=== PATIENT | female | born 1960 | race Hispanic/Latino ===

== ENCOUNTER 2018-12-13 11:22 | Emergency (ER) | payer MEDICARE ==
[2018-12-13 11:40] VITALS: BP 99/62
--- NOTE | 2018-12-13 11:43 | Event Note ---
ED Screening Note Date of service: 12/13/18 Time: 11:38 ED Screening Note: This is a 58 y.o. F. that presents to the ER with generalized body aches, cough, and fatigue. Patient states she fell landing on right side and reports increasing pain and fatigue. Reports recent weight loss. Current smoker. Patient states she was released from retirement 3 days ago. Reports a productive cough. This initial assessment/diagnostic orders/clinical plan/treatment(s) is/are subject to change based on patients health status, clinical progression and re- assessment by fellow clinical providers in the ED. Further treatment and workup at subsequent clinical providers discretion. Patient/guardian urged not to elope from the ED as their condition may be serious if not clinically assessed and managed. Initial orders include: CXR and labs
--- NOTE | 2018-12-13 12:53 | XRay Report ---
CHEST 2 VIEWS INDICATION: Chest pain and cough, patient reports a fall. COMPARISON: None FINDINGS: Support devices: None. Heart: Within normal limits. Lungs/pleura: The lungs are hyperinflated suggesting moderate underlying emphysematous changes. Bron chopulmonary markings in the right middle lobe are prominent anteriorly. This appears to represent sc arring or segmental atelectasis. Infiltrate is thought less likely. The lungs are clear otherwise. No pleural effusion or pneumothorax. Additional findings: The bony structures are demineralized but grossly intact. Multiple surgical clip s in the right axilla are noted. Probable right mastectomy changes. IMPRESSION: Emphysema. Probable chronic interstitial changes or scarring in the right middle lobe. No acute cardi opulmonary process is appreciated. Signer Name: Johnson Alicia Jr, MD Signed: 12/13/2018 12:49 PM Workstation Name: [id number]
[2018-12-13 12:58] LABS: Basophils % (Auto) 0.5 % (0.0-1.8); Eosinophils % (Auto) 0.4 % (0.0-4.3); Hematocrit 30.6 % (30.3-42.9); Hemoglobin 10.4 gm/dl (10.1-14.3); Lymphocytes # (Auto) 1.6 K/mm3 (1.2-5.4); Lymphocytes % (Auto) 18.9 % (13.4-35.0); Mean Corpuscular HGB Conc 34 % (30-34); Mean Corpuscular Volume 84 fl (79-97); Monocytes # (Auto) 1.1 K/mm3 (0.0-0.8); Platelet Count 340 K/mm3 (140-440); Red Blood Count 3.63 M/mm3 (3.65-5.03)
[2018-12-13 13:12] LABS: Alanine Aminotransferase 27 units/L (7-56); Albumin 3.3 g/dL (3.9-5); BUN/Creatinine Ratio 23; Blood Urea Nitrogen 9 mg/dL (7-17); Calcium 8.5 mg/dL (8.4-10.2); Hemolysis Index 0
[2018-12-13 13:17] LABS: Red Cell Distribution Width 20.1 % (13.2-15.2)
[2018-12-13] MEDS ORDERED: K-DUR PO ONE (13:29)
[2018-12-13] MEDS ORDERED: NORCO 5/325 PO ONE (13:49)
--- NOTE | 2018-12-13 13:50 | Emergency Department Report ---
ED General Adult HPI - General Chief complaint: Weakness Stated complaint: BODY PAIN/FATIGUE Time Seen by Provider: 12/13/18 11:38 Source: patient, EMS Mode of arrival: Ambulatory Limitations: No Limitations - History of Present Illness Initial comments: 58-year-old female patient with history of breast cancer presents today with complaints of right hip and right rib and right shoulder pain 3 days after falling and cough x 3 days. She states she was released from long term after a month's stay a few days ago. She denies head trauma or loss of consciousness. He also complains of weight loss of 20 pounds over 3 months in chronic fatigue for months. She denies any abdominal pain, dysuria, headache, vision changes, chest pain, fever/chills, or shortness of breath. He states the cough is productive of clear sputum. -: Sudden Severity scale (0 -10): 7 Treatments Prior to Arrival: none - Related Data Previous Rx's Medication Instructions Recorded Last Taken Type Benzonatate [Tessalon Perles] 200 mg PO Q8HR PRN #40 capsule 12/13/18 Unknown Rx Prednisone [predniSONE 10 mg 10 mg PO .TAPER #1 tab.ds.pk 12/13/18 Unknown Rx (6-Day Pack, 21 Tabs)] Allergies Allergy/AdvReac Type Severity Reaction Status Date / Time levofloxacin [From Levaquin] Allergy Rash Verified 12/13/18 11:28 ED Review of Systems ROS: Stated complaint: BODY PAIN/FATIGUE Other details as noted in HPI Constitutional: malaise. denies: chills, fever Eyes: denies: eye pain, vision change ENT: denies: throat pain Respiratory: cough, wheezing. denies: shortness of breath Cardiovascular: denies: chest pain, palpitations, dyspnea on exertion Endocrine: denies: excessive sweating, flushing Gastrointestinal: denies: abdominal pain Musculoskeletal: as per HPI. denies: back pain Skin: denies: as per HPI, rash, lesions Neurological: denies: headache, weakness, numbness, paresthesias, abnormal gait ED Past Medical Hx - Past Medical History Previous Medical History?: Yes Hx COPD: Yes Additional medical history: Hep C, breast CA, anemia - Surgical History Past Surgical History?: Yes Additional Surgical History: Radical mastectomy - Social History Smoking Status: Current Some Day Smoker Substance Use Type: None - Medications Home Medications: Home Medications Medication Instructions Recorded Confirmed Last Taken Type Benzonatate [Tessalon Perles] 200 mg PO Q8HR PRN #40 capsule 12/13/18 Unknown Rx Prednisone [predniSONE 10 mg 10 mg PO .TAPER #1 tab.ds.pk 12/13/18 Unknown Rx (6-Day Pack, 21 Tabs)] ED Physical Exam - General Limitations: No Limitations General appearance: alert, in no apparent distress - Head Head exam: Present: atraumatic, normocephalic - Eye Eye exam: Present: normal appearance - ENT ENT exam: Present: mucous membranes moist - Neck Neck exam: Present: normal inspection - Respiratory Respiratory exam: Present: normal lung sounds bilaterally, rhonchi, chest wall tenderness (upper right lateral ribs ). Absent: respiratory distress, wheezes, rales - Cardiovascular Cardiovascular Exam: Present: regular rate, normal rhythm, normal heart sounds - GI/Abdominal GI/Abdominal exam: Present: soft, normal bowel sounds - Extremities Exam Extremities exam: Present: full ROM, tenderness (right lateral hip ). Absent: joint swelling - Back Exam Back exam: Present: normal inspection, full ROM. Absent: tenderness - Neurological Exam Neurological exam: Present: alert, oriented X3 - Psychiatric Psychiatric exam: Present: normal affect, normal mood - Skin Skin exam: Present: warm, dry, intact, normal color. Absent: rash ED Course Vital Signs 12/13/18 11:37 Temperature 98.9 F Pulse Rate 104 H Respiratory 20 Rate Blood Pressure 99/62 O2 Sat by Pulse 95 Oximetry ED Medical Decision Making - Lab Data Result diagrams: 12/13/18 12:37 12/13/18 12:37 Lab Results 12/13/18 12/13/18 12/13/18 Range/Units 12:37 12:37 13:54 WBC 8.3 (4.5-11.0) K/mm3 RBC 3.63 L (3.65-5.03) M/mm3 Hgb 10.4 (10.1-14.3) gm/dl Hct 30.6 (30.3-42.9) % MCV 84 (79-97) fl MCH 29 (28-32) pg MCHC 34 (30-34) % RDW 20.1 H (13.2-15.2) % Plt Count 340 (140-440) K/mm3 Lymph % (Auto) 18.9 (13.4-35.0) % [place] % (Auto) 13.0 H (0.0-7.3) % Eos % (Auto) 0.4 (0.0-4.3) % Baso % (Auto) 0.5 (0.0-1.8) % Lymph # 1.6 (1.2-5.4) K/mm3 [place] # 1.1 H (0.0-0.8) K/mm3 Eos # 0.0 (0.0-0.4) K/mm3 Baso # 0.0 (0.0-0.1) K/mm3 Seg Neutrophils % 67.2 (40.0-70.0) % Seg Neutrophils # 5.6 (1.8-7.7) K/mm3 Sodium 145 (137-145) mmol/L Potassium 3.4 L (3.6-5.0) mmol/L Chloride 104.2 (98-107) mmol/L Carbon Dioxide 26 (22-30) mmol/L Anion Gap 18 mmol/L BUN 9 (7-17) mg/dL Creatinine 0.4 L (0.7-1.2) mg/dL Estimated GFR > 60 ml/min BUN/Creatinine Ratio 23 % Glucose 104 H (65-100) mg/dL Calcium 8.5 (8.4-10.2) mg/dL Total Bilirubin 0.40 (0.1-1.2) mg/dL AST 26 (5-40) units/L ALT 27 (7-56) units/L Alkaline Phosphatase 78 (35-129) units/L Total Protein 6.7 (6.3-8.2) g/dL Albumin 3.3 L (3.9-5) g/dL Albumin/Globulin Ratio 1.0 % TSH 0.602 (0.270-4.200) mlU/mL - Radiology Data Radiology results: report reviewed XRs of right ribs, right shoulder, and right hip are negative for acute findings. CHEST 2 VIEWS INDICATION: Chest pain and cough, patient reports a fall. COMPARISON: None FINDINGS: Support devices: None. Heart: Within normal limits. Lungs/pleura: The lungs are hyperinflated suggesting moderate underlying emphysematous changes. Bronchopulmonary markings in the right middle lobe are prominent anteriorly. This appears to represent scarring or segmental atelectasis. Infiltrate is thought less likely. The lungs are clear otherwise. No pleural effusion or pneumothorax. Additional findings: The bony structures are demineralized but grossly intact. Multiple surgical clips in the right axilla are noted. Probable right mastectomy changes. IMPRESSION: Emphysema. Probable chronic interstitial changes or scarring in the right middle lobe. No acute cardiopulmonary process is appreciated. - Medical Decision Making Pt here for pain due to a fall and cough x 3 days. Pt also complained of 20 lb weight loss over the passed 3 months. History of breast cancer. CBC and BMP R WNL chest x-ray shows probable chronic right lung scarring. No fever noted. Patient denies shortness of breath or chest pain. Discussed pt with Dr. Dozier- agrees pt okay to f/u outpt concerning xr findings. Informed patient of abnormal x-ray findings in the need for follow-up primary care and potentially pulmonology. X-rays negative for fractures. Will treat patient for viral bronchitis. Discussed need for return to ED if new or worsening symptom spatient states understanding. Critical care attestation.: If time is entered above; I have spent that time in minutes in the direct care of this critically ill patient, excluding procedure time. ED Disposition Clinical Impression: Contusion of bone, Abnormal chest xray Right shoulder strain Qualifiers: Encounter type: initial encounter Qualified Code(s): S46.911A - Strain of unspecified muscle, fascia and tendon at shoulder and upper arm level, right arm, initial encounter Disposition: DC-01 TO HOME OR SELFCARE Is pt being admited?: No Condition: Stable Instructions: Acute Bronchitis (ED), Contusion in Adults (ED), Shoulder Sprain (ED) Prescriptions: Prednisone [predniSONE 10 mg (6-Day Pack, 21 Tabs)] 10 mg PO .TAPER #1 tab.ds.pk Benzonatate [Tessalon Perles] 200 mg PO Q8HR PRN #40 capsule PRN Reason: Cough Referrals: [facility] [Provider Group] - 3-5 Days RAFAEL CAICEDO MD [Staff Physician] - 3-5 Days
--- NOTE | 2018-12-13 14:27 | XRay Report ---
RIGHT SHOULDER, 3 VIEWS INDICATION: pain after fall. COMPARISON: None. IMPRESSION: No acute osseous or soft tissue abnormality. No significant DJD. RIGHT RIBS, 4 VIEWS INDICATION: pain after fall. COMPARISON: None. IMPRESSION: No displaced right rib fracture is identified on x-ray. The right lung is well aerated. RIGHT HIP, 2 VIEWS INDICATION: pain after fall. COMPARISON: None. IMPRESSION: No acute osseous or soft tissue abnormality. No significant DJD. Signer Name: Johnson Alicia Jr, MD Signed: 12/13/2018 2:23 PM Workstation Name: [id number]
== END 2018-12-13 17:33 | disposition home or self-care (01) ==
LOC: ED 11:22
DX: S46.911A Strain of unspecified muscle, fascia and tendon at shoulder and upper arm level, right arm, initial encounter (principal); S70.01XA Contusion of right hip, initial encounter; J44.9 Chronic obstructive pulmonary disease, unspecified; Z86.2 Personal history of diseases of the blood and blood-forming organs and certain disorders involving the immune mechanism; F17.200 Nicotine dependence, unspecified, uncomplicated; Z79.899 Other long term (current) drug therapy; Z88.1 Allergy status to other antibiotic agents; X58.XXXA Exposure to other specified factors, initial encounter; Y93.89 Activity, other specified; Y92.89 Other specified places as the place of occurrence of the external cause; Y99.8 Other external cause status
CPT/HCPCS: 36415; 71046; 80053; 84443; 85025

== ENCOUNTER 2019-01-09 15:38 | Emergency (ER) | payer MEDICARE ==
[2019-01-09] MEDS ORDERED: SODIUM CHLORIDE 0.9% 500 ML 500 ML IV ONE (16:48)
[2019-01-09 18:21] LABS: BUN/Creatinine Ratio 15; Blood Urea Nitrogen 12 mg/dL (7-17); Calcium 8.8 mg/dL (8.4-10.2); Hemolysis Index 30
[2019-01-09] MEDS ORDERED: SODIUM CHLORIDE 0.9% 1000 ML 1,000 ML IV ONE (18:48)
--- NOTE | 2019-01-09 18:58 | Emergency Department Report ---
ED General Adult HPI - General Chief complaint: Overdose Stated complaint: AMS Time Seen by Provider: 01/09/19 16:43 Source: patient, EMS Mode of arrival: Stretcher Limitations: No Limitations - History of Present Illness Initial comments: Patient is a 58-year-old female who has a past medical history of opioid addiction secondary to long-standing back pain. The patient states she been in treatment for opiate abuse in the past but relapsed 2 days ago and the patient used heroin yesterday. Patient states that she went to get some dinner from the hotel that she was at and on her way from dinner she lost consciousness. Paramedics were called. Patient had pinpoint pupils at the time and she was given Narcan the patient is arrived awake and alert with no acute issues. Patient denies any nausea vomiting fevers chills headache or injury. - Related Data Previous Rx's Medication Instructions Recorded Last Taken Type Benzonatate [Tessalon Perles] 200 mg PO Q8HR PRN #40 capsule 12/13/18 Unknown Rx Prednisone [predniSONE 10 mg 10 mg PO .TAPER #1 tab.ds.pk 12/13/18 Unknown Rx (6-Day Pack, 21 Tabs)] Allergies Allergy/AdvReac Type Severity Reaction Status Date / Time levofloxacin [From Levaquin] Allergy Rash Verified 12/13/18 11:28 ED Review of Systems ROS: Stated complaint: AMS Other details as noted in HPI Comment: All other systems reviewed and negative ED Past Medical Hx - Past Medical History Previous Medical History?: Yes Hx COPD: Yes Additional medical history: Hep C, breast CA, anemia, osteoarthritis - Surgical History Past Surgical History?: Yes Additional Surgical History: Radical Right Mastectomy - Social History Smoking Status: Current Every Day Smoker Substance Use Type: Heroin - Medications Home Medications: Home Medications Medication Instructions Recorded Confirmed Last Taken Type Benzonatate [Tessalon Perles] 200 mg PO Q8HR PRN #40 capsule 12/13/18 Unknown Rx Prednisone [predniSONE 10 mg 10 mg PO .TAPER #1 tab.ds.pk 12/13/18 Unknown Rx (6-Day Pack, 21 Tabs)] ED Physical Exam - General Limitations: No Limitations General appearance: alert, in no apparent distress - Head Head exam: Present: atraumatic, normocephalic - Eye Eye exam: Present: normal appearance - ENT ENT exam: Present: mucous membranes moist - Neck Neck exam: Present: normal inspection - Respiratory Respiratory exam: Present: normal lung sounds bilaterally. Absent: respiratory distress, wheezes, rales, rhonchi - Cardiovascular Cardiovascular Exam: Present: regular rate, normal rhythm. Absent: systolic murmur, diastolic murmur, rubs, gallop - GI/Abdominal GI/Abdominal exam: Present: soft, normal bowel sounds - Extremities Exam Extremities exam: Present: normal inspection - Back Exam Back exam: Present: normal inspection - Neurological Exam Neurological exam: Present: alert, oriented X3 - Psychiatric Psychiatric exam: Present: normal affect, normal mood - Skin Skin exam: Present: warm, dry, intact, normal color. Absent: rash ED Course Vital Signs 01/09/19 01/09/19 01/09/19 16:40 16:48 18:19 Temperature 98.4 F Pulse Rate 125 H 111 H 103 H Respiratory 20 18 18 Rate Blood Pressure 103/56 Blood Pressure 96/46 80/43 [Left] O2 Sat by Pulse 93 97 95 Oximetry ED Medical Decision Making - Lab Data Result diagrams: 01/09/19 17:50 - Medical Decision Making Patient was placed on ekg monitor was monitored for 3 hours. Patient was noted to be sleeping in the room and her blood pressure dropped to 80 systolic. Patient with just voice awoke up immediately and did not appear to be overdosed again on narcotics. Patient states that she has always had a low blood pressure entire life. Patient states normal blood pressure for his approximately 90 systolic. Patient states that when she is sleep her blood pressure has dropped in the past. Recheck the patient's blood pressure after waking her up and it was 90/50. Critical care attestation.: If time is entered above; I have spent that time in minutes in the direct care of this critically ill patient, excluding procedure time. ED Disposition Clinical Impression: Heroin overdose Disposition: DC-01 TO HOME OR SELFCARE Is pt being admited?: No Does the pt Need Aspirin: No Condition: Stable Instructions: Narcotic Abuse (ED) Time of Disposition: 18:59
[2019-01-09 19:35] VITALS: BP 90/59
== END 2019-01-09 19:33 | disposition home or self-care (01) ==
LOC: ED 15:38
DX: T40.1X1A Poisoning by heroin, accidental (unintentional), initial encounter (principal); J44.9 Chronic obstructive pulmonary disease, unspecified; F17.200 Nicotine dependence, unspecified, uncomplicated; Z86.19 Personal history of other infectious and parasitic diseases; Z86.2 Personal history of diseases of the blood and blood-forming organs and certain disorders involving the immune mechanism; Z90.11 Acquired absence of right breast and nipple; Z88.1 Allergy status to other antibiotic agents; Z79.899 Other long term (current) drug therapy; Y92.89 Other specified places as the place of occurrence of the external cause
CPT/HCPCS: 36415; 80048; 85025; 99284; J7030; J7040